=== PATIENT | female | born 1945 | race Caucasian/White ===

== ENCOUNTER → 2019-09-11 | Outpatient (CLI) | payer OTHER | LOC: RAD 12:54 | DX: R06.02 Shortness of breath (principal); R06.00 Dyspnea, unspecified ==

== ENCOUNTER → 2021-07-08 | Outpatient (CLI) | payer OTHER | LOC: RAD 09:14 | PROVIDERS: ATTEND Internal Medicine | DX: R06.02 Shortness of breath (principal) ==